=== PATIENT | female | born 1975 | race Caucasian/White ===

== ENCOUNTER 2016-12-20 01:33 | Emergency (ER) | payer BC, MEDICARE ==
[~2016-12-20] VITALS: Ht 157.5 cm; Wt 80.7 kg
[~2016-12-20 01:33] MED LIST: LEVO500T20 PO; TAMS0.4C96 PO; TRAM50TA92 PO
[2016-12-20 01:45] VITALS: BP_SYST 129
--- NOTE | 2016-12-20 01:45 | NUR ---
Patient to ER bed 7 to gown for evaluation. Side rails up.
--- NOTE | 2016-12-20 01:46 | NUR ---
PT IN BED 7 WITH COMPLAINTS OF FLANK PAIN, HX OF RENAL COLIC, DR KRAFT AWARE.
--- NOTE | 2016-12-20 01:47 | NUR ---
Wilfredo Hidalgo at bedside examining patient.
[2016-12-20] MEDS ORDERED: GABA-529 PO (01:57)
[2016-12-20] MEDS ORDERED: KETOROLAC TROMETHAMINE 30 MG VIAL IVP ONE (02:00)
[2016-12-20] MEDS ORDERED: ONDANSETRON HCL 4 MG/2 ML VIAL IVP ONE (02:00)
--- NOTE | 2016-12-20 02:20 | NUR ---
# 22 gauge angiocath placed to RAC. Use of asceptic technique. Opsite placed over site. Blood return noted. Blood for lab drawn from site. Flushed with 10 cc of normal saline. No evidence of infiltration noted. Patient tolerated well.
[2016-12-20 02:37] LABS: BILIRUBIN,URINE NEGATIVE (NEGATIVE); BLOOD, URINE NEGATIVE (NEGATIVE); CLARITY/URINE CLEAR (CLEAR); COLOR,URINE YELLOW (YELLOW); GLUCOSE,URINE NEGATIVE (NEGATIVE); KETONES,URINE NEGATIVE (NEGATIVE); LEUKOCYTE ESTERASE ,URINE NEGATIVE (NEGATIVE); NITRITE, URINE NEGATIVE (NEGATIVE); PROTEIN URINE NEGATIVE (NEGATIVE); UROBILINOGEN,URINE 0.2 (0.2-1.0)
[2016-12-20 02:38] LABS: BASOPHILS % (AUTO) 0.2 % (0.0-2.0); EOSINOPHILS # (AUTO) 0.1 K/uL (0.0-0.4); EOSINOPHILS % (AUTO) 0.7 % (0.0-4.0); HEMATOCRIT 38.4 % (36-48); HEMOGLOBIN 12.8 g/dL (12.0-16.0); LYMPHOCYTES % (AUTO) 33.2 % (20.5-51.5); MEAN CORPUSCULAR HEMOGLOBIN 29 pg (27-31); MEAN CORPUSCULAR HGB CONC 33 % (32-36); MEAN CORPUSCULAR VOLUME 88 fL (79.0-98.0); MONOCYTES # (AUTO) 0.6 K/uL (0.0-1.0); MONOCYTES % (AUTO) 4.9 % (1.7-9.3); NEUTROPHILS # (AUTO) 7.4 K/uL (1.8-7.7); PLATELET COUNT (AUTO) 340 K/uL (130-430); RED BLOOD CELL COUNT(AUTO) 4.35 MIL/uL (4.2-6.2); RED CELL DISTRIBUTION WIDTH 12.2 % (9.0-15.0); WHITE BLOOD COUNT (AUTO) 12.1 K/uL (4.8-10.8)
--- NOTE | 2016-12-20 02:41 | NUR ---
Marnie powell in [facility] - 12/20/16 at 0305 by ROLANDOEDMANUELA Patient transported to radiology via JESUS, accompanied by PANEL SEWER.
[2016-12-20] MEDS ORDERED: MORPHINE 4 MG/ML INJ. SYRINGE IVP ONE (02:45)
--- NOTE | 2016-12-20 02:45 | NUR ---
MEDICATION GIVEN PER MD ORDERS, TOLERATED WELL.
[2016-12-20 02:47] LABS: CALCIUM 9.4 mg/dL (8.4-11.0); CREATININE 0.76 mg/dL (0.55-1.30); POTASSIUM 3.8 mmol/L (3.5-5.1)
[2016-12-20 02:53] LABS: ALBUMIN 4.4 g/dL (3.4-4.8); TOTAL BILIRUBIN 0.2 mg/dL (0.0-1.0)
--- NOTE | 2016-12-20 03:05 | NUR ---
Patient transported to radiology via GURNEY, accompanied by MICROFILM OPERATOR.
--- NOTE | 2016-12-20 03:30 | NUR ---
Returned from radiology, back to [facility].
--- NOTE | 2016-12-20 04:16 | NUR ---
ER at bedside examining patient.
[2016-12-20] MEDS ORDERED: NS 500 ML IV ONE (04:30)
[2016-12-20] MEDS ORDERED: METOCLOPRAMIDE HCL 10 MG/2 ML VIAL IVP ONE (04:30)
[2016-12-20] MEDS ORDERED: HYDROmorphone 1 MG INJ. 1 MG/ML AMPUL IVP ONE (04:30)
--- NOTE | 2016-12-20 04:38 | NUR ---
MEDICATION GIVEN PER MD ORDERS. TOLERATED WELL.
[2016-12-20 05:41] VITALS: BP_SYST 110
--- NOTE | 2016-12-20 05:42 | NUR ---
Patient given written and verbal discharge instructions and verbalizes understanding. ER MD discussed with patient the results and treatment provided. Patient in stable condition. ID arm band removed. IV catheter removed intact and dressing applied, no active bleeding. Rx of norco,zofran,imodium given. Patient educated on pain management and to follow up with PMD. Pain Scale 0/10. Opportunity for questions provided and answered.
== END 2016-12-20 05:42 | disposition home or self-care (01) ==
LOC: SED 01:33
DX: R10.84 Generalized abdominal pain (principal)
CPT/HCPCS: 36415; 74176; 80053; 81003; 81025; 82150; 83605; 83690; 85025; 87040; 96361; 96374; 96375; 99285; J1170; J1885; J2270; J2405; J2765; J7040

== ENCOUNTER 2021-11-06 01:01 | Emergency (ER) | payer SELFPAY ==
[~2021-11-06] VITALS: Ht 157.5 cm; Wt 70.3 kg
[~2021-11-06 01:01] MED LIST changes: +GABA-529 PO; -LEVO500T20 PO; -TAMS0.4C96 PO
[2021-11-06 01:04] VITALS: BP_SYST 122
--- NOTE | 2021-11-06 01:08 | NUR ---
PATIENT STATES SHE HAS A HEADACHE AND IS UNABLE TO MOVE LEFT ARM, UPON QUESTIONING, PATIENT ABLE TO MOVE LEFT EXTREMITY WITHOUT ISSUE. PATIENT STATES SHE HAS A HISTORY OF ANXIETY AND USED COCAINE TONIGHT AT APROX 2330. PATIENT IS TEARFUL BUT DIRECTABLE.
--- NOTE | 2021-11-06 01:14 | NUR ---
Pt taken to CT for imaging.
--- NOTE | 2021-11-06 01:23 | NUR ---
MD Moralez at bedside.
--- NOTE | 2021-11-06 01:30 | NUR ---
Inititated Code Stroke.
--- NOTE | 2021-11-06 01:35 | NUR ---
LAB AT BEDSIDE FOR BLOOD DRAW.
--- NOTE | 2021-11-06 01:56 | NUR ---
Neuro tele rendered at this time.
[2021-11-06 02:25] LABS: BASOPHILS # (AUTO) 0.1 K/uL (0.0-0.2); BASOPHILS % (AUTO) 0.4 % (0.0-2.0); EOSINOPHILS # (AUTO) 0.2 K/uL (0.0-0.4); EOSINOPHILS % (AUTO) 1.1 % (0.0-4.0); HEMATOCRIT 38.4 % (36-48); HEMOGLOBIN 12.9 g/dL (12.0-16.0); LYMPHOCYTES # (AUTO) 3.1 K/uL (1.0-5.5); LYMPHOCYTES % (AUTO) 19.9 % (20.5-51.5); MEAN CORPUSCULAR HEMOGLOBIN 30 pg (27-31); MEAN CORPUSCULAR HGB CONC 34 % (32-36); MEAN CORPUSCULAR VOLUME 90 fL (79.0-98.0); MONOCYTES # (AUTO) 0.7 K/uL (0.0-1.0); MONOCYTES % (AUTO) 4.3 % (1.7-9.3); NEUTROPHILS # (AUTO) 11.7 K/uL (1.8-7.7); NEUTROPHILS % (AUTO) 74.3 % (40.0-70.0); PLATELET COUNT (AUTO) 328 K/uL (130-430); RED BLOOD CELL COUNT(AUTO) 4.28 MIL/uL (4.2-6.2); RED CELL DISTRIBUTION WIDTH 13.3 % (9.0-15.0); WHITE BLOOD COUNT (AUTO) 15.8 K/uL (4.8-10.8)
[2021-11-06 02:27] LABS: ANION GAP 8 (5-15); CALCIUM 9.2 mg/dL (8.4-11.0); CHLORIDE 102 mmol/L (98-107); CREATININE 0.67 mg/dL (0.55-1.30); GLUCOSE 99 mg/dL (70-99); POTASSIUM 3.5 mmol/L (3.5-5.1); UREA NITROGEN, BLOOD 8 mg/dL (8-21)
[2021-11-06 02:31] LABS: GFR AFRICAN AMERICAN 123 mL/min (>90)
--- NOTE | 2021-11-06 02:34 | NUR ---
Neurologist explained/discussed R&B of using TPA with pt ; pt and nuerologist both agreed on not moving forward with TPA administration.
[2021-11-06] MEDS ORDERED: DIPHENHYDRAMINE INJ 50 MG/ML VIAL ONE (02:40)
[2021-11-06] MEDS ORDERED: METOCLOPRAMIDE HCL 10 MG/2 ML VIAL ONE (02:41)
[2021-11-06 02:42] LABS: ALANINE AMINOTRANSFERASE 17 U/L (12-78); ALBUMIN 4.2 g/dL (3.4-4.8); ASPARTATE AMINOTRANSFERASE 17 U/L (10-37); HCG,QUANTITATIVE 0 mIU/ML (0-6); TOTAL BILIRUBIN 0.3 mg/dL (0.0-1.0)
[2021-11-06] MEDS ORDERED: METOCLOPRAMIDE HCL 10 MG/2 ML VIAL IVP ONE (02:45)
[2021-11-06] MEDS ORDERED: DIPHENHYDRAMINE INJ 50 MG/ML VIAL IVP ONE (02:45)
--- NOTE | 2021-11-06 02:45 | NUR ---
# 20 gauge angiocath placed to . Use of asceptic technique. Opsite placed over site. Blood return noted. Blood for lab drawn from site. Flushed with 10 cc of normal saline. No evidence of infiltration noted. Patient tolerated well.
[2021-11-06 03:12] LABS: BARBITURATE, URINE NEGATIVE (NEG <=200); BENZODIAZEPINE, URINE NEGATIVE (NEG <=150); CANNABINOID, URINE NEGATIVE (NEG <=50); COCAINE, URINE POSITIVE (NEG <=150); METHAMPHETAMINES SCREEN,URINE NEGATIVE (NEG <=500); OPIATE, URINE NEGATIVE (NEG <=100); PHENCYCLIDINE SCREEN,URINE NEGATIVE (NEG <=25); UR TRICYCLIC ANTIDEPRESSANTS NEGATIVE (NEG <=300); URINE AMPHETAMINE NEGATIVE (NEG <=500); URINE METHADONE NEGATIVE (NEG <=200); URINE OXYCODONE SCREEN NEGATIVE (NEG <=100); URINE PROPOXYPHENE SCREEN NEGATIVE (NEG <=300)
[2021-11-06 03:19] LABS: ALCOHOL, BLOOD < 3 mg/dL (<10)
[2021-11-06] MEDS ORDERED: iohexoL 300 mgI/mL, 150 ML INFUS..BTL IV ONE (03:23)
[2021-11-06] MEDS ORDERED: MORPHINE 4 MG INJ. 4 MG/ML VIAL IVP ONE (04:30)
[2021-11-06] MEDS ORDERED: MORPHINE 4 MG INJ. 4 MG/ML VIAL ONE (04:31)
[2021-11-06 04:33] VITALS: BP_SYST 125
--- NOTE | 2021-11-06 04:41 | NUR ---
Admit bed requested Patient will be admitted to care of Admitted to Telemetry unit. Diagnosis CVA Inpatient (Yes or No) yes Observation (Yes or No) no Orientation concerns or request close to nursing station (Yes or No) no Covid Status pending On vent or bipap no Isolation requirements no Needs a sitter no From Home (Yes or if No enter name of facility) yes Requires Dialysis (Yes or No) no Med Rec Completed (Yes of No) yes
[2021-11-06] MEDS ORDERED: DULO60CA42 PO (04:43)
[2021-11-06] MEDS ORDERED: GABA600T PO (04:44)
--- NOTE | 2021-11-06 04:44 | NUR ---
Medication reconciliation completed with information provided by patient. Any prior medication reconciliation on file was reviewed and corrected.
--- NOTE | 2021-11-06 07:07 | NUR ---
Patient does not wish to proceed with medical care recommended by MD Farley. Patient given information related to possible complications, up to and including , which could occur as a result of leaving hospital at this time. Patient verbalizes understanding of risks involved leaving against medical advice. Patient has signed AMA form.
--- NOTE | 2021-11-06 07:42 | NUR ---
CONSULTATION PAGED REASON FOR CONSULTATION:[facility] WAS CONSULT CALLED?Y -PERSON WHO WAS NOTIFIED:TEXT MESSAGED DEBBIE ZENG CONSULTING PHYSICIAN:DEBBIE ZENG MIX CRUSHER OPERATOR SPECIALTY:NEURO MIX CRUSHER OPERATOR PHONE NUMBER:[phone] REQUESTING PHYSICIAN:DR.[email or web address]
--- NOTE | 2021-11-06 07:43 | NUR ---
DR CRUZ CALLED TO MAKE AWARE THAT PATIENT LEFT AMA
== END 2021-11-06 07:43 | disposition left against medical advice (07) ==
LOC: SED 01:01 → UNDOADMIN 04:37 → STU 04:37 → UNDODISIN 07:43 → STU 07:58
DX: R51.9 Headache, unspecified (principal); R53.1 Weakness; Z88.1 Allergy status to other antibiotic agents; Z79.899 Other long term (current) drug therapy; Z20.822 Contact with and (suspected) exposure to COVID-19
CPT/HCPCS: 99285; 70496; 96374; 71045; 96375; 87426; 80307; 80053; 82962; 84702; 85025; 85610; 85730; 84484; 36415; 93005; 70498; 70450; 76376; G0482; Q9967; J1200; J2765; J2270; G0378